=== PATIENT | female | born 1955 | race Caucasian/White ===

== ENCOUNTER 2016-11-10 20:40 | Inpatient (IN) | payer OTHER ==
[~2016-11-10] VITALS: Ht 160 cm; Wt 91.5 kg
[~2016-11-10 20:40] MED LIST: ACET1TAB40 PO; CYCL-319 PO; LOSA50TA6 PO; PANT40TA4 PO; SIMV20TA97 PO
[2016-11-11] MEDS ORDERED: morphine 2 MG INJ IV STA (01:25)
[2016-11-11] MEDS ORDERED: ONDANSETRON 4 MG INJ IV STA (01:25)
[2016-11-11] MEDS ORDERED: SOD CHLORIDE 0.9% 1,000 ML IV STA (01:25)
--- NOTE | 2016-11-11 01:49 | RADRPT ---
PROCEDURE: XR Chest. CLINICAL INDICATION: Abdominal pain. TECHNIQUE: Single frontal view of the chest was obtained COMPARISON: 10/17/2016. FINDINGS: Previously seen nasogastric tube is removed. Cardiomegaly. Tortuous thoracic aorta. Mild patchy air space disease at the lung bases. Aeration at the bilateral lung bases is improved over interval. 9 mm nodule at the right lung base is newly a pparent. Recommend CT examination of the chest for further evaluation. There is no pleural effusion or pneumothorax. IMPRESSION: 1. Cardiomegaly and tortuous thoracic aorta. 2. Improved aeration bilateral lung bases with mild persistent airspace disease. 3. Newly apparent 9 mm nodule of the right lung base, and recommend CT examination of the chest for further evaluation. RPTAT: [facility]U Physician Oma Date Time Electronically viewed and signed by Physician Oma on 11/11/2016 01:48 RS/
[2016-11-11 02:03] LABS: BASOPHILS % 0.3 % (0.0-2.0); EOSINOPHILS # 0.2 10^3/ul (0.0-0.5); EOSINOPHILS % 1.8 % (0.0-7.0); HEMATOCRIT 42.3 % (37.0-47.0); HEMOGLOBIN 14.3 g/dl (12.0-16.0); LYMPHOCYTES # 3.1 10^3/ul (0.8-2.9); LYMPHOCYTES % 23.2 % (15.0-51.0); MEAN CORPUSCULAR HEMOGLOBIN 29.6 pg (29.0-33.0); MEAN CORPUSCULAR HGB CONC 33.7 g/dl (32.0-37.0); MEAN CORPUSCULAR VOLUME 87.7 fl (82.0-101.0); MEAN PLATELET VOLUME 7.4 fl (7.4-10.4); MONOCYTE # 0.6 10^3/ul (0.3-0.9); MONOCYTES % 4.7 % (0.0-11.0); NEUTROPHIL # 9.4 10^3/ul (1.6-7.5); PLATELET COUNT 401 10^3/UL (140-440); RED BLOOD COUNT 4.82 10^6/ul (4.20-5.40); RED CELL DISTRIBUTION WIDTH 13.6 % (11.5-14.5); UNCORRECTED WBC 13.4 10^3/ul (4.8-10.8); WHITE BLOOD COUNT 13.4 10^3/ul (4.8-10.8)
[2016-11-11 02:04] LABS: ADD UMIC YES; URINE BILIRUBIN (Dip) NEGATIVE (NEGATIVE); URINE BLOOD (Dip) 1+ (NEGATIVE); URINE COLOR LT. YELLOW (YELLOW); URINE GLUCOSE (Dip) NEGATIVE (NEGATIVE); URINE KETONES (Dip) NEGATIVE (NEGATIVE); URINE LEUKOCYTE ESTERASE (Dip) NEGATIVE (NEGATIVE); URINE NITRITE (Dip) NEGATIVE (NEGATIVE); URINE TOTAL PROTEIN (Dip) NEGATIVE (NEGATIVE); URINE UROBILINOGEN (Dip) 0.2 E.U./dL (0.1-1.0)
[2016-11-11 02:10] LABS: INR 0.91; PROTIME 12.3 Sec (12.2-14.2)
[2016-11-11 02:11] LABS: PARTIAL THROMBOPLASTIN TIME 28.6 Sec (25.0-35.0)
[2016-11-11 02:14] LABS: ALBUMIN 4.3 g/dl (3.3-4.9); CHLORIDE 100 mmol/L (97-110); POTASSIUM 4.2 mmol/L (3.5-5.1); SODIUM 143 mmol/L (135-144)
[2016-11-11 02:16] LABS: BILIRUBIN,INDIRECT 0.2 mg/dl (0-1.1); BILIRUBIN,TOTAL 0.2 mg/dl (0.2-1.3); CREATININE 0.65 mg/dl (0.44-1.00)
[2016-11-11 02:17] LABS: ALANINE AMINOTRANSFERASE 27 IU/L (13-69); ALBUMIN/GLOBULIN RATIO 1.07; ALKALINE PHOSPHATASE 107 IU/L (42-121); ANION GAP 19 (8-16); ASPARTATE AMINO TRANSFERASE 22 IU/L (15-46); BLOOD UREA NITROGEN 14 mg/dl (7-20); CALCIUM 9.4 mg/dl (8.4-10.2); CARBON DIOXIDE 28 mmol/L (21-31); GLUCOSE 134 mg/dl (70-220); TOTAL PROTEIN 8.3 g/dl (6.1-8.1)
[2016-11-11 02:21] LABS: BACTERIA,URINE FEW; MUCUS,URINE FEW; SQUAMOUS EPITHELIAL CELL,UR FEW
--- NOTE | 2016-11-11 02:31 | RADRPT ---
PROCEDURE: CT Abdomen and Pelvis without contrast. CLINICAL INDICATION: Abdominal pain TECHNIQUE: CT scan of the abdomen and pelvis without contrast was performed on a multidetector hig h-resolution CT scanner. The patient was scanned without intravenous contrast. No oral contrast was administered. Coronal and sagittal reformatted images were obtained from the axial source images. Im ages were reviewed on a high-resolution PACS workstation. The total exam CTDI equals 24 mGy and the total exam DLP equals 1425.22 mGy-cm. COMPARISON: 10/17/2016 FINDINGS: Lungs: Mild dependent atelectasis is seen in the posterior lower lungs. Linear atelectasis/fibrosis is seen at the lung bases. Calcified pleural plaques in the right anterior and posterior lower ches t. Liver: No abnormality seen. Gallbladder: Cholecystectomy. Spleen: No abnormality seen. Stomach: Food material/debris, fluid and air in the stomach. Pancreas: No abnormality seen. Adrenals: No abnormality seen. Kidneys: 1.8 centimeter rounded fluid density structure in mid right kidney likely a cyst again seen . Nonobstructing 3 mm calculus in the mid right kidney again seen. No abnormality is seen in the l eft kidney. Abdominal aorta: No aneurysm seen. Atherosclerotic calcification is seen. Calcification in iliac a rteries. Lymph nodes: No enlarged lymph nodes are seen. Small bowel: There are dilated small bowel loops in the pelvis with maximal diameter approximately 3 .5 cm with the appearance of "fecalization" of contents suggestive of stasis with non dilated small bowel loops distally in the pelvis with the transition point apparent in the right anterior lower pe lvis consistent with a small bowel obstruction also seen on the previous study. Colon: Pancolonic diverticulosis with no specific evidence of acute diverticulitis again seen. Appendix: No abnormality seen. Bladder: No abnormality seen Pelvic organs: No abnormality seen Ascites: Small amount of ascites apparent in the central mid pelvis in the region of the dilated sm all bowel loops also seen on the previous study. Osseous structures: Lumbar spondylosis. Degenerative changes at sacroiliac joints and hips. Small scattered likely bone islands again apparent. Likely small umbilical hernia containing fat only. IMPRESSION: Dilated small bowel loops in the pelvis with maximal diameter approximately 3.5 cm with the appearan ce of "fecalization" of contents suggestive of stasis with non dilated small bowel loops distally in the pelvis with the transition point apparent in the right anterior lower pelvis consistent with a small bowel obstruction also seen on the previous study. Small amount of ascites apparent in the carlos tral mid pelvis in the region of the dilated small bowel loops also seen on the previous study. [place] alec diverticulosis. No specific evidence of acute diverticulitis seen. 3 mm nonobstructing calculus in mid right kidney again seen. Please see above. RPTAT: HJES .Michael Tidwell MD, MD Date Time Electronically viewed and signed by .Michael Tidwell MD, on 11/11/2016 02:31 .S/
[2016-11-11 02:33] LABS: TROPONIN-I < 0.012 ng/ml (0.00-0.12)
[2016-11-11 02:58] LABS: CONDITION 1
--- NOTE | 2016-11-11 03:20 | QN ---
Documentation Comment H&P dict a/p 1. SBO, ngt to suction 2. lung nodule, ct scan possibly as outpatient 3., proph: MAITE Caballero MD Nov 11, 2016 03:20
[2016-11-11] MEDS ORDERED: ONDANSETRON 4 MG INJ IV PRN (03:30)
[2016-11-11] MEDS ORDERED: morphine 4 MG/ML VIAL IV PRN (03:30)
[2016-11-11] MEDS ORDERED: ENALAPRILAT 1.25 MG INJ IV PRN (03:30)
--- NOTE | 2016-11-11 03:58 | HP ---
DATE OF ADMISSION: 11/10/2016 CHIEF COMPLAINT: Abdominal pain. HISTORY OF PRESENT ILLNESS: The patient presents to the emergency room at [facility] with abdominal pain with increasing distention of approximately 2 days' duration. She has been having so me nausea, 1 or 2 episodes of vomiting. She had diarrhea yesterday but denies passing any stool or flatus since that time. She has a past history of bowel obstruction and feels like that is what hap pened to her again. PAST MEDICAL HISTORY: Significant for bowel obstruction, hypertension, hyperlipidemia. MEDICATIONS: As an outpatient include 1. Cozaar 50 mg daily. 2. Zocor 20 mg daily. 3. Tylenol. 4. Protonix 40 mg b.i.d. ALLERGIES: NO KNOWN DRUG ALLERGIES. SOCIAL HISTORY: Lives at home in [place] with her and works in the [employer]. She denie s tobacco, alcohol, or illicit drug use. Independent of activities of daily living. FAMILY HISTORY: Noncontributory. REVIEW OF SYSTEMS: Five systems reviewed and found not to be revealing. PHYSICAL EXAMINATION: VITAL SIGNS: Blood pressure 127/88, pulse rate 77, respirations 20, temperature is 98.6. GENERAL: Pleasant woman in no acute distress, alert and oriented x3. HEENT: Normocephalic, atraumatic without scleral icterus, perioral cyanosis. Mucous membranes are moist. NECK: Soft and supple without masses. No evidence of jugular venous distention or carotid bruits. CHEST: Clear to auscultation and percussion bilaterally. HEART: Regular rate and rhythm, S1-S2, no added sounds. ABDOMEN: Soft, distended, nontender. No palpable hepatosplenomegaly. Bowel sounds are absent. EXTREMITIES: Without clubbing, cyanosis, or edema. SKIN: Without rashes. NEUROLOGIC: Grossly intact. LABORATORY STUDIES: Reveal a hemoglobin of 14.3 g/dL, white count of 13,400, platelets of 401,000. INR is 1.0. Sodium 143, potassium 4.2, chloride 100, bicarbonate 28, BUN 14, creatinine 0.65, gluc ose 134. Liver function tests within normal limits. UA shows 5 to 10 RBCs, 0 to 2 WBCs, and is oth erwise without signs of infection. CT scan of the abdomen and pelvis shows dilated loops of small b owel in the pelvis with a transition point consistent with small bowel obstruction. Chest x-ray benjamin ws cardiomegaly, 9 mm nodule. ASSESSMENT AND PLAN: 1. Gastrointestinal: The patient with small-bowel obstruction, recurrent. We will plan to place N G tube and observe. Surgical evaluation if needed. 2. Pulmonary nodule. Follow up with CT scan, possibly as outpatient. 3. Prophylaxis with Lovenox. Dictated By: MAITE RUBY MD RER/NTS Conf#: [id number] DID#: [id number]
[2016-11-11] MEDS ORDERED: SOD CHLORIDE 0.9% 1,000 ML IV ONE (04:00)
--- NOTE | 2016-11-11 04:31 | ERA ---
ER Documentation Chief Complaint Date/Time DATE: 11/11/16 TIME: 04:21 Chief Complaint upper abd pain x3 days HPI This 61-year-old female presents with upper abdominal pain for 3 days to get more severe today. She also has nausea and one episode of vomiting that was not a bilious or bloody. Denies constipation. Denies fever and chills. Does feel generalized weakness and tiredness. Only abdominal surgeries a remote cholecystectomy. I reviewed the patient's EMR she's been admitted on 2 prior occasions for small bowel obstruction did did not require surgery. ROS All systems reviewed and are negative except as per history of present illness. Medications Home Meds Active Scripts Pantoprazole* (Pantoprazole*) 40 Mg Tabec, 40 MG PO BID for 30 Days, 3 Refills Prov:Kash MOSERALEXIADIA Sherry 02/21/16 Reported Medications Acetaminophen with Codeine (Acetaminophen-Cod #3 Tablet) 1 Each Tablet, 1 TAB PO DAILY Y for SEVERE PAIN LEVEL 7-10, #7 TAB 10/17/16 Cyclobenzaprine Hcl* (Cyclobenzaprine Hcl*) 10 Mg Tablet, 10 MG PO QHS Y for MUSCLE SPASMS, #60 TAB 10/17/16 Simvastatin* (Zocor*) 20 Mg Tablet, 20 MG PO QHS, #30 TAB 04/02/16 Losartan Potassium* (Losartan Potassium*) 50 Mg Tablet, 50 MG PO DAILY, #90 02/05/16 Allergies Allergies: Coded Allergies: No Known Allergy (Unverified , 04/02/16) PMhx/Soc History of Surgery: Yes (breast sx, gallbladder removal ) Anesthesia Reaction: No Hx Neurological Disorder: No Hx Respiratory Disorders: No Hx Cardiac Disorders: Yes (HTN) Hx Psychiatric Problems: No Hx Miscellaneous Medical Probl: Yes (BOWEL OBSTRUCTION 10/18/16) Hx Alcohol Use: No Hx Substance Use: No Hx Tobacco Use: No Smoking Status: Never smoker Physical Exam Vitals Vital Signs Date Time Temp Pulse Resp B/P Pulse Ox O2 Delivery O2 Flow Rate FiO2 11/11/16 03:49 78 16 122/84 98 Room Air 11/11/16 03:48 98.6 70 20 122/89 100 Room Air 11/11/16 02:02 98.6 77 20 127/88 96 Room Air 11/10/16 20:43 98.4 86 20 202/129 97 Physical Exam Const: [] Mild distress Head: Atraumatic Eyes: Normal Conjunctiva ENT: Normal External Ears, Nose and Mouth. Neck: Full range of motion..~ No meningismus. Resp: Clear to auscultation bilaterally Cardio: Regular rate and rhythm, no murmurs Abd: Soft, moderate upper abdominal tenderness between the umbilicus and epigastrium extending to both right and left upper abdomen without guarding or rebound, mild tympanic distention normal bowel sounds Skin: No petechiae or rashes Back: No midline or flank tenderness Ext: No cyanosis, or edema Neur: Awake and alert and oriented 3, no focal deficits Result Diagram: 11/11/1614611/11/167 Results 24 hrs Laboratory Tests Test 11/11/16 01:47 Activated Partial Thromboplast Time 28.6Sec Alanine Aminotransferase (ALT/SGPT) 27IU/L Albumin 4.3g/dl Albumin/Globulin Ratio 1.07 Alkaline Phosphatase 107IU/L Anion Gap 19 Aspartate Amino Transf (AST/SGOT) 22IU/L Basophils # 0.010^3/ul Basophils % 0.3% Blood Morphology Comment Blood Urea Nitrogen 14mg/dl Calcium Level 9.4mg/dl Carbon Dioxide Level 28mmol/L Chloride Level 100mmol/L Creatinine 0.65mg/dl Direct Bilirubin 0.00mg/dl Eosinophils # 0.210^3/ul Eosinophils % 1.8% Globulin 4.00g/dl Glucose Level 134mg/dl Hematocrit 42.3% Hemoglobin 14.3g/dl INR International Normalized Ratio 0.91 Indirect Bilirubin 0.2mg/dl Lactic Acid Level 2.0mmol/L Lipase 63U/L Lymphocytes # 3.110^3/ul Lymphocytes % 23.2% Mean Corpuscular Hemoglobin 29.6pg Mean Corpuscular Hemoglobin Concent 33.7g/dl Mean Corpuscular Volume 87.7fl Mean Platelet Volume 7.4fl Monocytes # 0.610^3/ul Monocytes % 4.7% Neutrophils # 9.410^3/ul Neutrophils % 70.0% Nucleated Red Blood Cells # 0.010^3/ul Nucleated Red Blood Cells % 0.0/100WBC Platelet Count 40137^3/UL Potassium Level 4.2mmol/L Prothrombin Time 12.3Sec Prothrombin Time Ratio 1.0 Red Blood Count 4.8210^6/ul Red Cell Distribution Width 13.6% Sodium Level 143mmol/L Total Bilirubin 0.2mg/dl Total Protein 8.3g/dl Troponin I < 0.012ng/ml Urine Bacteria FEW Urine Bilirubin NEGATIVE Urine Clarity CLEAR Urine Color LT. YELLOW Urine Glucose NEGATIVE% Urine Hemoglobin 1+ Urine Ketones NEGATIVE Urine Leukocyte Esterase NEGATIVE Urine Microscopic RBC 5-10/HPF Urine Microscopic WBC 0-2/HPF Urine Mucus FEW Urine Nitrite NEGATIVE Urine Specific [place] >=1.030 Urine Squamous Epithelial Cells FEW Urine Total Protein NEGATIVE Urine Urobilinogen 0.2 E.U./dL Urine pH 5.5 White Blood Count 13.410^3/ul Current Medications Medications (Trade) Dose Ordered Sig/Alisa Route PRN Reason Start Time Stop Time Status Last Admin Dose Admin Sodium Chloride (NS) 1,000 ml @ 1,000 mls/hr Q1H STAT IV 11/11/16 01:25 11/11/16 02:24 DC 11/11/16 01:53 Morphine Sulfate (morphine) 2 mg ONCE STAT IV 11/11/16 01:25 11/11/16 01:29 DC 11/11/16 01:53 Ondansetron HCl 4 mg 4 mg ONCE STAT IV 11/11/16 01:25 11/11/16 01:29 DC 11/11/16 01:53 Sodium Chloride (NS) 1,000 ml @ 125 mls/hr Q8H IV 11/11/16 03:30 Enoxaparin Sodium (Lovenox) 40 mg DAILY SC 11/11/16 09:00 Ondansetron HCl (Zofran Inj) 4 mg Q4H PRN IV nausea 11/11/16 03:30 Morphine Sulfate (morphine) 4 mg Q4H PRN IV pain 11/11/16 03:30 Pantoprazole (Protonix Iv) 40 mg DAILY@06 IV 11/11/16 06:00 Enalaprilat 0.625 mg 0.625 mg Q4H PRN IV sbp>160 11/11/16 03:30 Sodium Chloride (NS) 1,000 ml @ 1,000 mls/hr Q1H ONCE IV 11/11/16 04:00 11/11/16 04:59 Procedures/MDM 61-year-old female with small bowel obstruction. Is possible secondary to adhesions from her prior cholecystectomy. She was given morphine, 2 L of IV fluid, Zofran. Her symptoms were under much better control. She has no signs of sepsis does not have a surgical abdomen at this time. Spoke with Dr. Reich will be admitting the patient. He does not want a surgical consult at this time and so the page to Dr. Robert was canceled Departure Diagnosis: Primary Impression: Small bowel obstruction Additional Impression: Acute abdominal pain Condition: Serious TASHA CARROLL DO Nov 11, 2016 04:31
--- NOTE | 2016-11-11 04:43 | RADRPT ---
PROCEDURE: Chest. CLINICAL INDICATION: Chest pain. TECHNIQUE: Single frontal view of the chest was obtained. COMPARISON: 11/11/2016. FINDINGS: There is a nasogastric tube extending to the stomach. The cardiac silhouette is magnified. The aor tic arch is unremarkable. There is no focal consolidation, vascular congestion or pleural effusion. There is no pneumothorax. IMPRESSION: No evidence for active cardiopulmonary disease. Nasogastric tube in place. .Selwyn Baron MD, MD Date Time Electronically viewed and signed by .Selwyn Baron MD, on 11/11/2016 04:42 .T/
[2016-11-11] MEDS: PANTOPRAZOLE 40 MG INJ IV SCH (06:15)
[2016-11-11 15:08] VITALS: TEMP 98.6
[2016-11-11 17:08] VITALS: BP 168/90; RESP 18
--- NOTE | 2016-11-11 17:31 | PN ---
Date/Time of Note Date/Time of Note DATE: 11/11/16 TIME: 16:57 Assessment/Plan VTE Prophylaxis VTE Prophylaxis Intervention: LMWH Lines/Catheters IV Catheter Type (from Nrsg): Peripheral IV Assessment/Plan Assessment/Plan 61 yo female with: 1. Abdominal pain with ? recurrent SBO However, patient reports no Flatus but had 3 adequate bowel movements yesterday after taking laxatives .... Continue NGT and on low intermittent suction. Pain control, anti emetic SBFT in AM, if negative the patient may actually have IBS with constipation predominant and episodes of ileus and in that case should be started on Amitiza 8 mcg po bid, if SBFT in AM positive, will have general surgery involved 2. Hypertension: Vasotec prn and resume Losartan once able to have po 3. Hyperlipidemia: resume statins at discharge. Prophylaxis: DVT ppx with Lovenox, GI ppx with PPI Disposition: NGT to low intermittent suction and SBFT in AM Subjective 24 Hr Interval Summary Free Text/Dictation Patient with abdominal pain and ? recurrent SBO on CT scan, but did have 3 BMs yesterday after taking laxatives... NGT and SBFT in AM and further plan pending SBFT results Exam/Review of Systems Vital Signs Vitals Vital Signs Date Time Temp Pulse Resp B/P Pulse Ox O2 Delivery O2 Flow Rate FiO2 11/11/16 15:08 98.6 74 14 137/72 98 Room Air Exam Constitutional: alert, obese, oriented, well developed Cardiovascular: nl pulses, regular rate and rhythm Gastrointestinal: distended (moderate ), soft, tender (TTP upper abdo ) Musculoskeletal: nl extremities to inspection Extremities: normal pulses, other (no edema, clubbing or cyanosis ) Neurological: PACK MASTER II-XII intact, nl mental status, nl speech, nl strength Results Result Diagram: 11/11/1614611/11/16146 Results 24 hrs Laboratory Tests Test 11/11/16 01:47 Activated Partial Thromboplast Time 28.6 Alanine Aminotransferase (ALT/SGPT) 27 Albumin 4.3 Albumin/Globulin Ratio 1.07 Alkaline Phosphatase 107 Anion Gap 19 H Aspartate Amino Transf (AST/SGOT) 22 Basophils # 0.0 Basophils % 0.3 Blood Morphology Comment Blood Urea Nitrogen 14 Calcium Level 9.4 Carbon Dioxide Level 28 Chloride Level 100 Creatinine 0.65 Direct Bilirubin 0.00 Eosinophils # 0.2 Eosinophils % 1.8 Globulin 4.00 H Glucose Level 134 Hematocrit 42.3 Hemoglobin 14.3 INR International Normalized Ratio 0.91 Indirect Bilirubin 0.2 Lactic Acid Level 2.0 Lipase 63 Lymphocytes # 3.1 H Lymphocytes % 23.2 Mean Corpuscular Hemoglobin 29.6 Mean Corpuscular Hemoglobin Concent 33.7 Mean Corpuscular Volume 87.7 Mean Platelet Volume 7.4 Monocytes # 0.6 Monocytes % 4.7 Neutrophils # 9.4 H Neutrophils % 70.0 Nucleated Red Blood Cells # 0.0 Nucleated Red Blood Cells % 0.0 Platelet Count 401 Potassium Level 4.2 Prothrombin Time 12.3 Prothrombin Time Ratio 1.0 Red Blood Count 4.82 Red Cell Distribution Width 13.6 Sodium Level 143 Total Bilirubin 0.2 Total Protein 8.3 H Troponin I < 0.012 Urine Bacteria FEW Urine Bilirubin NEGATIVE Urine Clarity CLEAR Urine Color LT. YELLOW Urine Glucose NEGATIVE Urine Hemoglobin 1+ H Urine Ketones NEGATIVE Urine Leukocyte Esterase NEGATIVE Urine Microscopic RBC 5-10 Urine Microscopic WBC 0-2 Urine Mucus FEW Urine Nitrite NEGATIVE Urine Specific [place] >=1.030 H Urine Squamous Epithelial Cells FEW Urine Total Protein NEGATIVE Urine Urobilinogen 0.2 E.U./dL Urine pH 5.5 White Blood Count 13.4 #H MAXIMILIAN MOSER Nov 11, 2016 17:07
[2016-11-11 17:38] VITALS: Ht 160 cm; Wt 91.5 kg
[2016-11-11] MEDS: SOD CHLORIDE 0.9% 1,000 ML IV SCH ×2 (18:31→18:43)
[2016-11-11 18:40] VITALS: BP 158/95; PULSE 80; RESP 18
[2016-11-11 20:32] VITALS: BP 160/83; RESP 18
[2016-11-12] MEDS: SOD CHLORIDE 0.9% 1,000 ML IV SCH ×5 (02:56→20:53)
[2016-11-12] MEDS: PANTOPRAZOLE 40 MG INJ IV SCH (05:25)
[2016-11-12 06:53] LABS: BASOPHIL # 0.1 10^3/ul (0.0-0.1); BASOPHILS % 0.4 % (0.0-2.0); EOSINOPHILS # 0.3 10^3/ul (0.0-0.5); EOSINOPHILS % 1.8 % (0.0-7.0); HEMATOCRIT 40.3 % (37.0-47.0); HEMOGLOBIN 13.6 g/dl (12.0-16.0); LYMPHOCYTES # 2.8 10^3/ul (0.8-2.9); LYMPHOCYTES % 19.6 % (15.0-51.0); MEAN CORPUSCULAR HEMOGLOBIN 29.7 pg (29.0-33.0); MEAN CORPUSCULAR HGB CONC 33.9 g/dl (32.0-37.0); MEAN CORPUSCULAR VOLUME 87.7 fl (82.0-101.0); MEAN PLATELET VOLUME 7.7 fl (7.4-10.4); MONOCYTE # 0.5 10^3/ul (0.3-0.9); MONOCYTES % 3.7 % (0.0-11.0); NEUTROPHIL # 10.8 10^3/ul (1.6-7.5); NEUTROPHILS % 74.5 % (39.0-77.0); PLATELET COUNT 355 10^3/UL (140-440); RED BLOOD COUNT 4.59 10^6/ul (4.20-5.40); RED CELL DISTRIBUTION WIDTH 13.7 % (11.5-14.5); UNCORRECTED WBC 14.4 10^3/ul (4.8-10.8); WHITE BLOOD COUNT 14.4 10^3/ul (4.8-10.8)
[2016-11-12 06:56] LABS: CONDITION 1
[2016-11-12 07:16] LABS: MAGNESIUM 1.8 mg/dl (1.7-2.5); PHOSPHORUS 3.9 mg/dl (2.5-4.9)
[2016-11-12 07:17] LABS: POTASSIUM 3.6 mmol/L (3.5-5.1)
[2016-11-12 07:19] LABS: CREATININE 0.58 mg/dl (0.44-1.00)
[2016-11-12 07:20] LABS: CALCIUM 8.9 mg/dl (8.4-10.2)
[2016-11-12 07:29] VITALS: BP 141/90; RESP 20
[2016-11-12] MEDS: ENOXAPARIN 40 MG/0.4 ML SYG SC SCH ×2 (09:00→10:43)
[2016-11-12] MEDS ORDERED: DIATR MEGLU/DIATRIZOATE SODIUM 120 ML BTL ONE (12:06)
--- NOTE | 2016-11-12 16:57 | RADRPT ---
PROCEDURE: XR Abdomen. CLINICAL INDICATION: r/o SBO TECHNIQUE: [facility] abdominal radiograph. 2 cups gastrographin. Serial abdominal radiographs of 15-m inute intervals and 1 hour intervals for 3 hours. COMPARISON: None. FINDINGS: On the instruction librarian film, there is an NG tube with the tip in the stomach. Noted is a nonspecific bowel ga s pattern with no evidence of obstruction or pneumoperitoneum. No abnormal abdominal or pelvic calc ifications are present. There is a right upper quadrant cholecystectomy clips. The stomach and duodenum are unremarkable. Small bowel loops are of normal course, caliber and conf iguration. There is no mass effect. No fold thickening is seen and there is no mass. No fistula i s visualized. Terminal ileum appears normal. Small bowel transit time is to 1 half hours which is within normal limits. IMPRESSION: Normal small bowel follow-through with no evidence of obstruction or mass. .Prudencio Vinson MD, MD Date Time Electronically viewed and signed by .Prudencio Vinson MD, on 11/12/2016 16:57 .A/
--- NOTE | 2016-11-12 18:31 | PN ---
Date/Time of Note Date/Time of Note DATE: 11/12/16 TIME: 18:31 Assessment/Plan VTE Prophylaxis VTE Prophylaxis Intervention: SCD's Lines/Catheters IV [facility]ter Type (from [facility]): Peripheral IV Urinary Cath still in place: No Assessment/Plan Assessment/Plan [facility] 1. 61 yo woman who presented with abdominal pain and possible recurrent small bowel obstruction. She has passed some stool, and SBFT today showed no obstruction. WBC slightly elevated, at 14.4k/ul, possibly stress-related. No fever or focal signs of infection. * Discontinue nasogastric tube * Cepachol lozenges for sore throat * Trial of Amitiza 8 mcg PO BID 2. Hypertension: * Restart Losartan 3. Hyperlipidemia * Statin therapy 4. Prophylaxis: DVT prevention with Lovenox;, GI ppx with PPI 5. Disposition: Advance diet as tolerated. Lives with her , who can help care for her at home after discharge. Daniel Greco MD PhD [phone] Subjective 24 Hr Interval Summary Free Text/Dictation Feeling better, asking to remove NG tube with sore throat. No nausea now, dyspnea or chest discomfort. Exam/Review of Systems Vital Signs Vitals Vital Signs Date Time Temp Pulse Resp B/P Pulse Ox O2 Delivery O2 Flow Rate FiO2 11/12/16 07:29 98.3 77 20 141/90 92 11/11/16 15:08 Room Air Intake and Output 11/11/16 11/11/16 11/12/16 15:00 23:00 07:00 Intake Total 1250 ml Balance 1250 ml Exam Constitutional: Large, uncomfortable-appearing Cardiovascular: Symmetric pulses, regular rate and rhythm Gastrointestinal: distended moderately, soft, non-tender Musculoskeletal: nl extremities to inspection, with no mounika arthritis. Extremities: No edema, clubbing or cyanosis ) Neurological: TIRE BEADER MAKER II-XII intact, nl mental status, nl speech, nl strength. Moving all extremities with intact distal strength. Toes downgoing. Results Result Diagram: 11/12/16 0539 11/12/16 0539 Results 24 hrs Laboratory Tests Test 11/12/16 05:39 Anion Gap 17 H Basophils # 0.1 Basophils % 0.4 Blood Urea Nitrogen 8 Calcium Level 8.9 Carbon Dioxide Level 26 Chloride Level 102 Creatinine 0.58 Eosinophils # 0.3 Eosinophils % 1.8 Glucose Level 115 Hematocrit 40.3 Hemoglobin 13.6 Lymphocytes # 2.8 Lymphocytes % 19.6 Magnesium Level 1.8 Mean Corpuscular Hemoglobin 29.7 Mean Corpuscular Hemoglobin Concent 33.9 Mean Corpuscular Volume 87.7 Mean Platelet Volume 7.7 Monocytes # 0.5 Monocytes % 3.7 Neutrophils # 10.8 H Neutrophils % 74.5 Nucleated Red Blood Cells # 0.0 Nucleated Red Blood Cells % 0.0 Phosphorus Level 3.9 Platelet Count 355 Potassium Level 3.6 Red Blood Count 4.59 Red Cell Distribution Width 13.7 Sodium Level 141 White Blood Count 14.4 H Medications Medications Current Medications Sodium Chloride (NS) 1,000 ml @ 125 mls/hr Q8H IV Last administered on 10:45; Admin Dose 125 MLS/HR; Start 11/11/16 at 03:30 Enoxaparin Sodium (Lovenox) 40 mg DAILY SC Last administered on 11/12/16 10:43 ; Admin Dose 40 MG; Start 11/11/16 at 09:00 Ondansetron HCl (Zofran Inj) 4 mg Q4H PRN IV nausea; Start 11/11/16 at 03:30 Morphine Sulfate (morphine) 4 mg Q4H PRN IV pain Last administered on 11/11/16 18:54; Admin Dose 4 MG; Start 11/11/16 at 03:30 Pantoprazole (Protonix Iv) 40 mg DAILY@06 IV Last administered on 11/12/16 05: 25; Admin Dose 40 MG; Start 11/11/16 at 06:00 Enalaprilat (Vasotec Iv) 0.625 mg Q4H PRN IV sbp>160 Last administered on 21:07; Admin Dose 0.625 MG; Start 11/11/16 at 03:30 Phenol (Cepastat Lozenge) 1 lozenge Q2 PRN [place] PAIN; Start 11/12/16 at 18:30; Status TA HOFFMAN M.D. Nov 12, 2016 18:31
[2016-11-12] MEDS: CEPASTAT LOZENGE MT PRN (18:44)
[2016-11-12 20:25] VITALS: BP 136/76; RESP 20
[2016-11-12] MEDS: LUBIPROSTONE 8 MCG CAPSULE PO SCH (20:58)
[2016-11-12] MEDS: ACETAMINOPHEN 325 MG TAB PO PRN (22:39)
[2016-11-13] MEDS: SOD CHLORIDE 0.9% 1,000 ML IV SCH ×2 (05:07→11:30)
[2016-11-13] MEDS: PANTOPRAZOLE 40 MG INJ IV SCH (05:07)
[2016-11-13] MEDS: ACETAMINOPHEN 325 MG TAB PO PRN ×2 (05:07→16:53)
[2016-11-13 07:35] VITALS: BP 135/72; RESP 18
[2016-11-13] MEDS: CEPASTAT LOZENGE MT PRN (08:39)
[2016-11-13] MEDS: LUBIPROSTONE 8 MCG CAPSULE PO SCH (08:39)
[2016-11-13] MEDS: ENOXAPARIN 40 MG/0.4 ML SYG SC SCH (08:47)
--- NOTE | 2016-11-13 18:26 | DS ---
Date/Time of Note Date/Time of Note DATE: 11/13/16 TIME: 18:16 Discharge Summary Admission/Discharge Info Admit Date/Time Nov 11, 2016 at 03:29 Discharge Date/Time Nov 13, 2016 Final Diagnosis Irritable bowel syndrome with pseudo-obstruction Consults None Procedures Small bowel follow-through Hx of Present Illness Ms. Ko presented to the emergency room at [facility] with abdominal pain and increasing distention of approximately 2 days' duration. She had been having nausea with 1 or 2 episodes of vomiting, with loose stooling the day prior to admission. She had a past history of bowel obstruction and felt like that was what was happening to her again. PAST MEDICAL HISTORY: Bowel obstruction, hypertension, hyperlipidemia. ALLERGIES: NO KNOWN DRUG ALLERGIES. Hospital Course In the ER, lab studies showed a hemoglobin of 14.3 g/dL, white count of 13,400, platelets of 401,000. INR 1.0. Sodium 143, potassium 4.2, chloride 100, bicarbonate 28, BUN 14, creatinine 0.65, glucose 134. Transaminases within normal limits. UA showed 5 to 10 RBCs, 0 to 2 WBCs, without other signs of infection. CT scan of the abdomen and pelvis showed dilated loops of small bowel in the pelvis with a transition point consistent with possible small bowel obstruction. Chest x-ray showed cardiomegaly and a 9 mm pulmonary nodule. A nasogastric tube was placed to low suction. She was placed on Lovenox for DVT prophylaxis. She had a normal gastrografin small bowel follow- through with no evidence of obstruction or mass. The NG tube was removed last night, she was started on amitizya 8 mcg BID, and she tolerated gradual advancement of her diet today with no recurrence of nausea or abdominal pain. She had two loose bowel movements today, and generally felt like she was back to normal. This afternoon she complained of chronic pain in the right, dominant shoulder. 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 A prescription will be provided. On exam, she was comfortable-appearing, speaking in Khmer. HEENT: Normal pupils. Mucous membranes are moist. NECK: Soft and supple without masses. No evidence of jugular venous distention. CHEST: Clear to auscultation and percussion bilaterally. HEART: Regular rate and rhythm, no murmur ABDOMEN: Soft, distended, nontender. No palpable hepatosplenomegaly. Bowel sounds normal today. EXTREMITIES: Without clubbing, cyanosis, or edema. Her right shoulder was moderately restricted in elevation and rotation, with mild tenderness of the posterior subacromial bursa and moderate tenderness of the anterior joint line. Isometric challenge suggested she didn't have rotator cuff damage or tendinitis. SKIN: Without rash. NEUROLOGIC: Alert and oriented. Cranial nerves, motor and light touch sensation intact. Home Meds Active Scripts Diclofenac Sodium* (Voltaren* Gel) 1% -100 Gm Gel, 2 GM TOP QID Y for shoulder pain, #1 TUB Prov:TA ABRAMS M.D. 11/13/16 Throat Lozenges* (Cepastat*) 9 Ebrny Lozenge, 1 LOZENGE MT Q2H Y for PAIN for 14 Days, LOZENGE Prov:TA ABRAMS M.D. 11/13/16 Lubiprostone* (Amitiza*) 8 Mcg Capsule, 8 MCG PO BID for 30 Days, CAP Prov:TA ABRAMS M.D. 11/13/16 Pantoprazole* (Pantoprazole*) 40 Mg Tabec, 40 MG PO BID for 30 Days, 3 Refills Prov:MAXIMILIAN MOSER 02/21/16 Reported Medications Cyclobenzaprine Hcl* (Cyclobenzaprine Hcl*) 10 Mg Tablet, 10 MG PO QHS Y for MUSCLE SPASMS, #60 TAB 10/17/16 Simvastatin* (Zocor*) 20 Mg Tablet, 20 MG PO QHS, #30 TAB 04/02/16 Losartan Potassium* (Losartan Potassium*) 50 Mg Tablet, 50 MG PO DAILY, #90 02/05/16 Discontinued Reported Medications Acetaminophen with Codeine (Acetaminophen-Cod #3 Tablet) 1 Each Tablet, 1 TAB PO DAILY Y for SEVERE PAIN LEVEL 7-10, #7 TAB 10/17/16 Follow-up Plan PCP in the next week. Pending Labs None TA ABRAMS M.D. Nov 13, 2016 18:26
--- NOTE | 2016-11-13 18:27 | PDOCDIS ---
Discharge Instructions DIAGNOSIS Discharge Diagnosis: Probable irritable bowel syndrome, with pseudo-obstruction CONDITION Patient Condition: Good HOME CARE INSTRUCTIONS: Diet Instructions: Special Diet: advance cautiously; minimize fatty foods ACTIVITY: Activity Restrictions: No Restrictions FOLLOW UP/APPOINTMENTS Appointments PCP in the next week. TA ABRAMS M.D. Nov 13, 2016 18:27
[2016-11-13] MEDS ORDERED: CEPASTAT MT (18:30)
[2016-11-13] MEDS ORDERED: DICL100G37 TOP (18:30)
[2016-11-13] MEDS ORDERED: LUBI8CAP4 PO (18:30)
[2016-11-13 20:22] VITALS: BP 146/83; RESP 19
== END 2016-11-13 20:24 | disposition home or self-care (01) | DRG 392 ==
LOC: E/R 20:40 → PP2 11-11 03:29 → E/R 11-11 14:51
PROVIDERS: ADMIT Internal Medicine; ATTEND Internal Medicine
DX: K58.9 Irritable bowel syndrome, unspecified (principal); I10 Essential (primary) hypertension; K59.8 Other specified functional intestinal disorders; E78.5 Hyperlipidemia, unspecified; R91.1 Solitary pulmonary nodule
CPT/HCPCS: 71010; 74176; 74250; 80048; 80053; 81001; 81003; 83605; 83690; 83735; 84100; 84484; 85025; 85610; 85730; 93005; C9113; J1650; J2270; J2405; J7030

== ENCOUNTER 2017-10-17 20:59 | Emergency (ER) | payer OTHER ==
[~2017-10-17] VITALS: Ht 152.4 cm; Wt 93.2 kg
[~2017-10-17 20:59] MED LIST changes: -ACET1TAB40 PO; +CEPASTAT MT; +DICL100G37 TOP; +LUBI8CAP4 PO; +SIMV20TA PO; -SIMV20TA97 PO
[2017-10-17 21:46] VITALS: Ht 152.4 cm; Wt 93.2 kg
[2017-10-17] MEDS ORDERED: IPRATROPIUM (NEB) 0.5 MG/2.5 ML AMP NEB STA (22:36)
[2017-10-17] MEDS ORDERED: ALBUTEROL 0.083% (NEB) 2.5 MG/3 ML AMP NEB STA (22:36)
--- NOTE | 2017-10-17 22:58 | ERD ---
ER Documentation Chief Complaint Chief Complaint COUGH X 3 DAYS HPI 62-year-old female presents here to emergency department for complaints of cough for 3 days. Patient has been having dry cough with on and off wheezing and shortness of breath. Patient denies any fever chills. Patient complaining of left-sided chest pain that started 6 hours ago after coughing too much. Patient describes the pain as throbbing pain, succession scale, as was upon taking a deep breath. Patient denies any fever chills. Denies any dyspnea on exertion or dizzy lying down. Patient denies any sore throat or ear pain. She denies any sick contacts. Patient denies any travel. ROS All systems reviewed and are negative except as per history of present illness. Medications Home Meds Active Scripts Prednisone* (Prednisone*) 50 Mg Tablet, 50 MG PO DAILY, #5 TAB Prov:MIKE TAYLOR NP 10/18/17 Albuterol Sulfate* (Proair HFA*) 8.5 Gm Hfa.aer.ad, 2 PUFF INH Q4H Y for WHEEZING AND SOB, #1 INHALER Prov:MKIE TAYLOR NP 10/18/17 Cetirizine Hcl* (Zyrtec*) 10 Mg Capsule, 10 MG PO DAILY, #30 TAB.CHEW Prov:MIKE TAYLOR NP 10/18/17 Guaifenesin-Codeine Phosphate* (Guaifenesin* AC Cough Syrup) 473 Ml Liquid, 10 ML PO Q4H Y for COUGH, #120 ML Prov:MIKE TAYLOR NP 10/18/17 Azithromycin* (Zithromax*) 250 Mg Tablet, 250 MG PO .IrinaPACK DIRECTED, #6 TAB TAKE 500 MG (2 TABS) THE FIRST DAY THEN 250 MG (1 TAB) DAYS 2-5 Prov:MIKE TAYLOR NP 10/18/17 Diclofenac Sodium* (Voltaren* Gel) 1% -100 Gm Gel, 2 GM TOP QID Y for shoulder pain, #1 TUB Prov:TA ABRAMS M.D. 11/13/16 Throat Lozenges* (Cepastat*) 9 Berny Lozenge, 1 LOZENGE MT Q2H Y for PAIN for 14 Days, LOZENGE Prov:TA ABRAMS M.D. 11/13/16 Lubiprostone* (Amitiza*) 8 Mcg Capsule, 8 MCG PO BID for 30 Days, CAP Prov:TA ABRAMS M.D. 11/13/16 Pantoprazole* (Pantoprazole*) 40 Mg Tabec, 40 MG PO BID for 30 Days, 3 Refills Prov:MAXIMILIAN MOSER 02/21/16 Reported Medications Cyclobenzaprine Hcl* (Cyclobenzaprine Hcl*) 10 Mg Tablet, 10 MG PO QHS Y for MUSCLE SPASMS, #60 TAB 10/17/16 Simvastatin* (Zocor*) 20 Mg Tablet, 20 MG PO QHS, #30 TAB 04/02/16 Losartan Potassium* (Losartan Potassium*) 50 Mg Tablet, 50 MG PO DAILY, #90 02/05/16 Allergies Allergies: Coded Allergies: No Known Allergy (Unverified , 04/02/16) PMhx/Soc History of Surgery: Yes Anesthesia Reaction: No Hx Neurological Disorder: No (Headache) Hx Respiratory Disorders: No Hx Cardiac Disorders: Yes (HTN, High Cholesterol) Hx Psychiatric Problems: No Hx Miscellaneous Medical Probl: No Hx Alcohol Use: No Hx Substance Use: No Hx Tobacco Use: Yes Smoking Status: Never smoker FmHx Family History: No coronary disease, No diabetes, No other Physical Exam Vitals Vital Signs Date Time Temp Pulse Resp B/P Pulse Ox O2 Delivery O2 Flow Rate FiO2 10/17/17 22:55 96 18 92 21 10/17/17 21:46 98.5 96 18 136/82 95 Physical Exam GENERAL: The patient is well developed and appropriate for usual state of health, in no apparent distress. CHEST: Diffuse wheezing noted bilaterally. There are no rales, or rhonchi. HEART: Regular rate and rhythm. No murmurs, clicks, rubs or gallops. No S3 or S4. ABDOMEN: Soft, nontender and nondistended. Good bowel sounds. No rebound or guarding. No gross peritonitis. No gross organomegaly or masses. No Carpenter sign or McBurney point tenderness. BACK: No midline or flank tenderness. EXTREMITIES: Equal pulses bilaterally. There is no peripheral clubbing, cyanosis or edema. No focal swelling or erythema. Full range of motion. Grossly neurovascularly intact. NEURO: Alert and oriented. Cranial nerves 2-12 intact. Motor strength in all 4 extremities with 5/5 strength. Sensation grossly intact. Normal speech and gait. SKIN: There is no apparent rash or petechia. The skin is warm and dry. HEMATOLOGIC AND LYMPHATIC: There is no evidence of excessive bruising or lymphedema. No gross cervical, axillary, or inguinal lymphadenopathy. Result Diagram: 10/17/17224910/17/170 Results 24 hrs Laboratory Tests Test 10/17/17 22:50 White Blood Count 11.310^3/ul Red Blood Count 4.6610^6/ul Hemoglobin 13.9g/dl Hematocrit 40.4% Mean Corpuscular Volume 86.7fl Mean Corpuscular Hemoglobin 29.8pg Mean Corpuscular Hemoglobin Concent 34.4g/dl Red Cell Distribution Width 13.1% Platelet Count 74053^3/UL Mean Platelet Volume 9.2fl Neutrophils % 80.9% Lymphocytes % 9.1% Monocytes % 6.6% Eosinophils % 2.6% Basophils % 0.4% Nucleated Red Blood Cells % 0.0/100WBC Neutrophils # 9.210^3/ul Lymphocytes # 1.010^3/ul Monocytes # 0.810^3/ul Eosinophils # 0.310^3/ul Basophils # 0.010^3/ul Nucleated Red Blood Cells # 0.010^3/ul Sodium Level 139mmol/L Potassium Level 4.3mmol/L Chloride Level 101mmol/L Carbon Dioxide Level 27mmol/L Anion Gap 15 Blood Urea Nitrogen 14mg/dl Creatinine 0.79mg/dl Glucose Level 134mg/dl Calcium Level 9.4mg/dl Troponin I < 0.012ng/ml Current Medications Medications (Trade) Dose Ordered Sig/Alisa Route PRN Reason Start Time Stop Time Status Last Admin Dose Admin Albuterol (Proventil 0.083% (Neb)) 5 mg ONCE STAT NEB 10/17/17 22:36 10/17/17 22:39 DC 10/17/17 22:54 Ipratropium Greene (Atrovent 0.02% (Neb)) 0.5 mg ONCE STAT NEB 10/17/17 22:36 10/17/17 22:39 DC 10/17/17 22:54 Guaifenesin/ Codeine Phosphate (Robitussin Ac Liquid Cup) 10 ml ONCE ONCE PO 10/17/17 23:00 10/17/17 23:01 DC 10/17/17 23:54 Breathing treatment of albuterol and Atrovent was given here in emergency department, after treatment, patient's lungs sounds are clear and patient's oxygenation is better. Patient verbalized feeling much better. Guaifenasin with codeine was given here in emergency department the help with cough. EKG was done, read by me and is normal sinus rhythm at a rate of 94, normal axis, there is no ST changes or changes in the EKG that indicates any cardiac emergencies at this time. Patient's EKG was also reviewed by Dr. Leyva. Impression: no acute findings on EKG PROCEDURE: XR Chest. CLINICAL INDICATION: Chest Pain. TECHNIQUE: Single frontal view of the chest was obtained COMPARISON: Chest radiograph dated November 11, 2016. FINDINGS: The heart and mediastinum are within normal limits. The lungs are clear. There is no pleural effusion or pneumothorax. The osseous structures are unremarkable. IMPRESSION: 1. No acute cardiopulmonary disease. RPTAT:AAJJ Physician Ander Date Time Electronically viewed and signed by Physician Ander on 10/17/2017 23:51 QL/ CC: MIKE TAYLOR STREAMING MEDIA SPECIALIST Procedures/MDM Medical Decision Making: Patient symptoms are most likely consistent with acute bronchitis, most likely from a typical infection. There is low suspicion for Pneumonia at this time since patients lungs sounds are clear, patient O2 saturation is normal and patient doesnt show any respiratory distress. Patient s chest xray doesnt show infiltrates or any other cardiopulmonary emergencies at this time. There is low suspicion for other cardiopulmonary emergencies at this time such as CHF, Pulmonary Embolism, Pneumothorax, Aortic Aneurysm or any other cardiopulmonary emergencies at this time. There is low suspicion for sepsis. Patient appears well and is hemodynamically stable. Fever is controlled with medicines. EKG is normal, cardiac markers are normal. Disposition: Home. Condition: Stable Prescriptions: Azithromycin, guaifenesin with codeine Zyrtec albuterol prednisone Instructions: Patient is advised to take medications as prescribed. Patient is advised to rest. Patient advised to increase fluid intake, do humidifier at home and if possible, do salt water gargles. Patient is advised that if symptoms are worse, shortness of breath, uncontrolled fever, stridor, vomiting, worst signs and symptoms to return to emergency department immediately. Otherwise, patient is advised to follow up with primary doctor in 5-7 days. Disclaimer: Inadvertent spelling and grammatical errors are likely due to EHR/ dictation software use and do not reflect on the overall quality of patient care. Also, please note that the electronic time recorded on this note does not necessarily reflect the actual time of the patient encounter. Departure Diagnosis: Primary Impression: Acute bronchitis Bronchitis organism: unspecified organism Qualified Code: J20.9 - Acute bronchitis, unspecified organism Condition: Stable Patient Instructions: Bronchitis, Antiobiotic Treatment (Adult) Additional Instructions: Patient is advised to take medications as prescribed. Patient is advised to rest. Patient advised to increase fluid intake, do humidifier at home and if possible, do salt water gargles. Patient is advised that if symptoms are worse, shortness of breath, uncontrolled fever, stridor, vomiting, worst signs and symptoms to return to emergency department immediately. Otherwise, patient is advised to follow up with primary doctor in 5-7 days. MIKE TAYLOR NP Oct 17, 2017 22:58
[2017-10-17] MEDS ORDERED: GUAIFENESIN/CODEINE 5ML CUP PO ONE (23:00)
[2017-10-17 23:08] LABS: BASOPHILS % 0.4 % (0.0-2.0); EOSINOPHILS # 0.3 10^3/ul (0.0-0.5); EOSINOPHILS % 2.6 % (0.0-7.0); HEMATOCRIT 40.4 % (37.0-47.0); HEMOGLOBIN 13.9 g/dl (12.0-16.0); LYMPHOCYTES % 9.1 % (15.0-51.0); MEAN CORPUSCULAR HEMOGLOBIN 29.8 pg (29.0-33.0); MEAN CORPUSCULAR HGB CONC 34.4 g/dl (32.0-37.0); MEAN CORPUSCULAR VOLUME 86.7 fl (82.0-101.0); MEAN PLATELET VOLUME 9.2 fl (7.4-10.4); MONOCYTE # 0.8 10^3/ul (0.3-0.9); MONOCYTES % 6.6 % (0.0-11.0); NEUTROPHIL # 9.2 10^3/ul (1.6-7.5); NEUTROPHILS % 80.9 % (39.0-77.0); PLATELET COUNT 350 10^3/UL (140-415); RED BLOOD COUNT 4.66 10^6/ul (4.20-5.40); RED CELL DISTRIBUTION WIDTH 13.1 % (11.5-14.5); WHITE BLOOD COUNT 11.3 10^3/ul (4.8-10.8)
[2017-10-17 23:31] LABS: ANION GAP 15 (8-16); BLOOD UREA NITROGEN 14 mg/dl (7-20); CALCIUM 9.4 mg/dl (8.4-10.2); CARBON DIOXIDE 27 mmol/L (21-31); CHLORIDE 101 mmol/L (97-110); CREATININE 0.79 mg/dl (0.44-1.00); GLUCOSE 134 mg/dl (70-220); POTASSIUM 4.3 mmol/L (3.5-5.1); SODIUM 139 mmol/L (135-144)
[2017-10-17 23:49] LABS: TROPONIN-I < 0.012 ng/ml (0.00-0.12)
--- NOTE | 2017-10-17 23:52 | RADRPT ---
PROCEDURE: XR Chest. CLINICAL INDICATION: Chest Pain. TECHNIQUE: Single frontal view of the chest was obtained COMPARISON: Chest radiograph dated November 11, 2016. FINDINGS: The heart and mediastinum are within normal limits. The lungs are clear. There is no pleural effusion or pneumothorax. The osseous structures are unremarkable. IMPRESSION: 1. No acute cardiopulmonary disease. RPTAT:AAJJ Physician Ander Date Time Electronically viewed and signed by Physician Ander on 10/17/2017 23:51 QL/
[2017-10-18] MEDS ORDERED: AZIT250T94 PO (00:23)
[2017-10-18] MEDS ORDERED: PRED50TA PO (00:23)
[2017-10-18] MEDS ORDERED: CETI10CA PO (00:23)
[2017-10-18] MEDS ORDERED: ALBU8.5H3 INH (00:23)
[2017-10-18] MEDS ORDERED: GUAI473L22 PO (00:23)
== END 2017-10-18 02:06 | disposition home or self-care (01) ==
LOC: FTE 20:59
DX: J20.9 Acute bronchitis, unspecified (principal); I10 Essential (primary) hypertension; Z87.891 Personal history of nicotine dependence
CPT/HCPCS: 71010; 80048; 84484; 85025; 93005; 94664

== ENCOUNTER 2017-10-22 20:33 | Emergency (ER) | payer OTHER ==
[~2017-10-22] VITALS: Ht 152.4 cm; Wt 91.9 kg
[~2017-10-22 20:33] MED LIST changes: +ALBU8.5H3 INH; +AZIT250T94 PO; +CETI10CA PO; +GUAI473L22 PO; +PRED50TA PO
[2017-10-22 20:38] VITALS: Ht 152.4 cm; Wt 91.9 kg
[2017-10-22 22:53] LABS: BASOPHILS % 0.1 % (0.0-2.0); HEMATOCRIT 41.1 % (37.0-47.0); HEMOGLOBIN 13.7 g/dl (12.0-16.0); LYMPHOCYTES # 2.8 10^3/ul (0.8-2.9); LYMPHOCYTES % 36.9 % (15.0-51.0); MEAN CORPUSCULAR HEMOGLOBIN 29.1 pg (29.0-33.0); MEAN CORPUSCULAR HGB CONC 33.3 g/dl (32.0-37.0); MEAN CORPUSCULAR VOLUME 87.3 fl (82.0-101.0); MEAN PLATELET VOLUME 9.1 fl (7.4-10.4); MONOCYTE # 0.6 10^3/ul (0.3-0.9); NEUTROPHIL # 4.1 10^3/ul (1.6-7.5); NEUTROPHILS % 54.2 % (39.0-77.0); PLATELET COUNT 393 10^3/UL (140-415); RED BLOOD COUNT 4.71 10^6/ul (4.20-5.40); RED CELL DISTRIBUTION WIDTH 13.3 % (11.5-14.5); WHITE BLOOD COUNT 7.5 10^3/ul (4.8-10.8)
--- NOTE | 2017-10-22 23:09 | RADRPT ---
PROCEDURE: XR Chest. CLINICAL INDICATION: Chest pain TECHNIQUE: Single frontal view of the chest COMPARISON: 11/11/2016 FINDINGS: The previously seen nasogastric tube is removed. Heart size is upper limits of normal with calcified tortuous thoracic aorta. Calcified granuloma is again seen at the right lung base. The lungs are otherwise clear. No signs of pleural fluid or pneum othorax are seen. The osseous structures and soft tissues are unremarkable. IMPRESSION: No evidence for active cardiopulmonary disease. RPTAT: UU Physician Oma Date Time Electronically viewed and signed by Daren Sexton Physician on 10/22/2017 23:08 RS/
[2017-10-22 23:15] LABS: ALANINE AMINOTRANSFERASE 57 IU/L (13-69); ALBUMIN 3.8 g/dl (3.3-4.9); ALBUMIN/GLOBULIN RATIO 1.08; ALKALINE PHOSPHATASE 96 IU/L (42-121); ANION GAP 16 (8-16); ASPARTATE AMINO TRANSFERASE 25 IU/L (15-46); BILIRUBIN,INDIRECT 0.1 mg/dl (0-1.1); BILIRUBIN,TOTAL 0.1 mg/dl (0.2-1.3); BLOOD UREA NITROGEN 17 mg/dl (7-20); CALCIUM 9.3 mg/dl (8.4-10.2); CARBON DIOXIDE 26 mmol/L (21-31); CHLORIDE 101 mmol/L (97-110); CREATININE 0.71 mg/dl (0.44-1.00); GLUCOSE 189 mg/dl (70-220); SODIUM 139 mmol/L (135-144); TOTAL PROTEIN 7.3 g/dl (6.1-8.1)
[2017-10-22 23:26] LABS: B-TYPE NATRIURETIC PEPTIDE 36 PG/ML (0-125)
[2017-10-22 23:31] LABS: TROPONIN-I < 0.012 ng/ml (0.00-0.12)
--- NOTE | 2017-10-23 00:23 | ERD ---
ER Documentation Chief Complaint Chief Complaint pt reports cp and l arm pain for 15 days, cough HPI This is a 62-year-old female, with chest pain or left arm pain for 15 days. Along with a cough. She said pain is worse when she coughs. Was seen here recently for this cough. No nausea no vomiting no chills. Pain is mild to moderate intensity. No other current complaints. No fevers no chills. ROS All systems reviewed and are negative except as per history of present illness. Medications Home Meds Active Scripts Prednisone* (Prednisone*) 50 Mg Tablet, 50 MG PO DAILY, #5 TAB Prov:MIKE TAYLOR NP 10/18/17 Albuterol Sulfate* (Proair HFA*) 8.5 Gm Hfa.aer.ad, 2 PUFF INH Q4H Y for WHEEZING AND SOB, #1 INHALER Prov:MIKE TAYLOR NP 10/18/17 Cetirizine Hcl* (Zyrtec*) 10 Mg Capsule, 10 MG PO DAILY, #30 TAB.CHEW Prov:MIKE TAYLOR NP 10/18/17 Guaifenesin-Codeine Phosphate* (Guaifenesin* AC Cough Syrup) 473 Ml Liquid, 10 ML PO Q4H Y for COUGH, #120 ML Prov:MIKE TAYLOR NP 10/18/17 Azithromycin* (Zithromax*) 250 Mg Tablet, 250 MG PO .ZPACK DIRECTED, #6 TAB TAKE 500 MG (2 TABS) THE FIRST DAY THEN 250 MG (1 TAB) DAYS 2-5 Prov:MIKE TAYLOR NP 10/18/17 Diclofenac Sodium* (Voltaren* Gel) 1% -100 Gm Gel, 2 GM TOP QID Y for shoulder pain, #1 TUB Prov:TA ABRAMS M.D. 11/13/16 Throat Lozenges* (Cepastat*) 9 Berny Lozenge, 1 LOZENGE MT Q2H Y for PAIN for 14 Days, LOZENGE Prov:TA ABRAMS M.D. 11/13/16 Lubiprostone* (Amitiza*) 8 Mcg Capsule, 8 MCG PO BID for 30 Days, CAP Prov:TA ABRAMS M.D. 11/13/16 Pantoprazole* (Pantoprazole*) 40 Mg Tabec, 40 MG PO BID for 30 Days, 3 Refills Prov:MAXIMILIAN MOSER 02/21/16 Reported Medications Cyclobenzaprine Hcl* (Cyclobenzaprine Hcl*) 10 Mg Tablet, 10 MG PO QHS Y for MUSCLE SPASMS, #60 TAB 10/17/16 Simvastatin* (Zocor*) 20 Mg Tablet, 20 MG PO QHS, #30 TAB 04/02/16 Losartan Potassium* (Losartan Potassium*) 50 Mg Tablet, 50 MG PO DAILY, #90 02/05/16 Allergies Allergies: Coded Allergies: No Known Allergy (Unverified , 04/02/16) PMhx/Soc History of Surgery: Yes Anesthesia Reaction: No Hx Neurological Disorder: No (Headache) Hx Respiratory Disorders: No Hx Cardiac Disorders: Yes (HTN, High Cholesterol) Hx Psychiatric Problems: No Hx Miscellaneous Medical Probl: No Hx Alcohol Use: No Hx Substance Use: No Hx Tobacco Use: No Smoking Status: Never smoker Physical Exam Vitals Vital Signs Date Time Temp Pulse Resp B/P Pulse Ox O2 Delivery O2 Flow Rate FiO2 10/22/17 22:45 98.2 70 14 124/78 96 Room Air 10/22/17 20:38 97.6 89 16 156/86 97 Physical Exam Const: [] Head: Atraumatic Eyes: Normal Conjunctiva ENT: Normal External Ears, Nose and Mouth. Neck: Full range of motion..~ No meningismus. Resp: Clear to auscultation bilaterally Cardio: Regular rate and rhythm, no murmurs Abd: Soft, non tender, non distended. Normal bowel sounds Skin: No petechiae or rashes Back: No midline or flank tenderness Ext: No cyanosis, or edema Neur: Awake and alert Psych: Normal Mood and Affect Result Diagram: 10/22/17222210/22/172222 Results 24 hrs Laboratory Tests Test 10/22/17 22:23 White Blood Count 7.510^3/ul Red Blood Count 4.7110^6/ul Hemoglobin 13.7g/dl Hematocrit 41.1% Mean Corpuscular Volume 87.3fl Mean Corpuscular Hemoglobin 29.1pg Mean Corpuscular Hemoglobin Concent 33.3g/dl Red Cell Distribution Width 13.3% Platelet Count 97682^3/UL Mean Platelet Volume 9.1fl Neutrophils % 54.2% Lymphocytes % 36.9% Monocytes % 8.0% Eosinophils % 0.0% Basophils % 0.1% Nucleated Red Blood Cells % 0.0/100WBC Neutrophils # 4.110^3/ul Lymphocytes # 2.810^3/ul Monocytes # 0.610^3/ul Eosinophils # 0.010^3/ul Basophils # 0.010^3/ul Nucleated Red Blood Cells # 0.010^3/ul Sodium Level 139mmol/L Potassium Level 4.0mmol/L Chloride Level 101mmol/L Carbon Dioxide Level 26mmol/L Anion Gap 16 Blood Urea Nitrogen 17mg/dl Creatinine 0.71mg/dl Glucose Level 189mg/dl Calcium Level 9.3mg/dl Total Bilirubin 0.1mg/dl Direct Bilirubin 0.00mg/dl Indirect Bilirubin 0.1mg/dl Aspartate Amino Transf (AST/SGOT) 25IU/L Alanine Aminotransferase (ALT/SGPT) 57IU/L Alkaline Phosphatase 96IU/L Troponin I < 0.012ng/ml B-Type Natriuretic Peptide 36PG/ML Total Protein 7.3g/dl Albumin 3.8g/dl Globulin 3.50g/dl Albumin/Globulin Ratio 1.08 Procedures/MDM EKG: Rate/Rhythm: [Normal Sinus Rhythm] QRS, ST, T-waves: [No changes consistent w/ acute ischemia] Impression: [No evidence of ischemia or arrhythmia] Chest X-ray 1V Interpreted by me: Soft Tissue: No acute abnormalities Bones: No acute abnormalities Mediastinum/Cardiac Silhouette/Lungs: [No acute abnormalities] Patient's thoracic symptoms have stabilized while in the department and are stable for outpatient follow up. Exam and work up not consistent w/ ischemia, arrhythmia, PE or dissection. Symptomology is consistent with costochondritis likely secondary to cough. Patient discharged home with cough suppressant on antibiotics and inhaler therapy. Follow-up with PCP. Return for worsening symptoms. Departure Diagnosis: Primary Impression: Chest pain Chest pain type: unspecified Qualified Code: R07.9 - Chest pain, unspecified type Additional Impression: Bronchitis Condition: Stable MULUGETA CALDWELL Oct 23, 2017 00:23
[2017-10-23] MEDS ORDERED: PRED20TA PO (00:43)
[2017-10-23] MEDS ORDERED: PROM5SYR2 PO (00:43)
[2017-10-23 01:00] VITALS: BP 135/90; PULSE 64; RESP 16; TEMP 98
== END 2017-10-23 01:00 | disposition home or self-care (01) ==
LOC: E/R 20:33
DX: M94.0 Chondrocostal junction syndrome [Tietze] (principal); J20.9 Acute bronchitis, unspecified; I10 Essential (primary) hypertension; R40.2142 Coma scale, eyes open, spontaneous, at arrival to emergency department; R40.2252 Coma scale, best verbal response, oriented, at arrival to emergency department; R40.2362 Coma scale, best motor response, obeys commands, at arrival to emergency department; R06.02 Shortness of breath
CPT/HCPCS: 36415; 71010; 80053; 83880; 84484; 85025; 93005